=== PATIENT | female | born 1990 | race Two or more races ===

== ENCOUNTER → 2016-04-25 | Day surgery (SDC) | payer BC ==
[~2016-04-25] MED LIST: CEFAZOLIN 1 GM VIAL ONE; DEXAMETHASONE 4 MG/ML VIAL IV ONE; FENTANYL 100 MCG/2 ML VIAL IV ONE; FENTANYL 100 MCG/2 ML VIAL IV PRN; GLYCOPYRROLATE 1 MG VIAL IM ONE; HYDROmorphone 1 MG INJECTION IV PRN; LABETALOL 20 MG/4 ML SYRINGE IV PRN; LIDOCAINE 100 MG PFS IV ONE; MEPERIDINE 25 MG/ML TUBEX IV PRN; METHYLERGONOVINE 0.2 MG/ML AMPULE IM ONE; METHYLERGONOVINE 0.2 MG/ML AMPULE ONE; METOCLOPRAMIDE 10 MG/2 ML VIAL IV ONE; ONDANSETRON HCL 4 MG ODT TAB PO PRN; ONDANSETRON HCL 4 MG/2 ML VIAL IV ONE; ONDANSETRON HCL 4 MG/2 ML VIAL IV PRN; OXYCODONE HCL 5 MG TABLET ONE; OXYTOCIN 10 UNITS/ML VIAL IM ONE; PROPOFOL 200 MG/20 ML VIAL IV ONE; RHo(D) IMMUNE GLOBULIN (HUMAN) 300 MCG SYRINGE IM SCH; hydrALAZINE 20 MG/ML VIAL IV PRN
--- NOTE | 2016-04-25 11:21 | HIM.ANES ---
Anesthesia Evaluation & Plan Diagnoses: MISSED (04/25/16) 8 wk gestation Consented Procedure: Suction D and C Surgeon:: Mode Kenney - Focused Review of Systems Now: Yes (Missed AB) Cardiac History: No: Hx Hypertension, Hx Cardiac Disorders EKG Rhythm: Sinus Rhythm HEENT: No: Loose/Decaying Teeth, Other HEENT Problems Respiratory: No: Hx Asthma Gastrointestinal: No: Hx Liver disease, Hx Gastrointestinal Disorders Genitourinary: No: Hx Renal Disease Neurological/Musculoskeletal: No: Hx Neurological Disorders Psychological: Yes Hx Depression Blood/Autoimmune: No: Hx AIDS, Hx Hepatitis (type) Smoking Status: Never smoker Other Surgical History: 04/25/16 11:23 wisdom teeth - Focused Physical Exam NPO since: yesterday @ 1700 Mallampati: Class I Thyromental Distance: Greater than 3 Neck: Full Range of Motion Dental: Normal - no significant findings Cardiovascular/Chest: Normal Respiratory: Lungs clear Any problems with anesthesia, including nausea and vomiting?: No Any relatives with a history of Malignant Hyperthermia?: No Does patient have a history of Malignant Hyperthermia?: No Beta Jose given (if appropriate): N/A Does the patient have a history of Motion Sickness-: No Other: Allergies Allergy/AdvReac Type Severity Reaction Status Date / Time No Known Allergies Allergy Verified 04/25/16 11:01 Home Medications Medication Instructions Recorded Last Taken Type Vits W-Ca,Fe,FA(<1Mg) 1 each PO DAILY 04/25/16 04/23/16 21:00 History [] Height and Weight Patient's height 5 ft 5 in Patient's weight 65.771 kg Vital Signs Temperature 97.5 F 04/25/16 10:34 Pulse Rate 70 04/25/16 10:34 Respiratory Rate 16 04/25/16 10:34 Blood Pressure 122/71 04/25/16 10:34 Pulse Oxygen Saturation 100 04/25/16 10:34 METS - Level of Activity: Climbing stairs(1 flight),walking level ground, running short distance - Anesthetic Plan Anesthesia Type: General ASA Class: 1 -: I have examined this patient and reviewed the medical record. The patient has been assessed prior to anesthesia. Risks and benefits of anesthesia and anesthetic technique options have been discussed and all questions answered. The patient accepts the risk and desires me to proceed with the planned anesthetic.
--- NOTE | 2016-04-25 13:17 | HIMOPRPT ---
DATE OF PROCEDURE: 04/25/16 PREOPERATIVE DIAGNOSIS: Missed . POSTOPERATIVE DIAGNOSIS: Missed . PROCEDURE: Cervical dilation and uterine evacuation. SURGEON: Mode Kenney MD. ANESTHESIA: General endotracheal tube. COMPLICATIONS: None. ESTIMATED BLOOD LOSS: 100 mL.. FINDINGS: Uterus 8 weeks and anteverted on exam under anesthesia. PROCEDURE IN DETAIL: The patient was taken to the operating room and after successful induction of general endotracheal tube anesthesia, she was positioned in [facility]. The perineum and vagina were prepped and draped as a sterile field and the bladder was drained. A weighted speculum and anterior [place] were placed and the cervix was secured with a long Allis clamp. The cervix was dilated to a #19 Goodwin dilator. A #12 suction catheter was passed and the uterine cavity was evacuated. A medium-size curette was passed to be sure the cavity was clean. Methergine 0.25 mg IM was given to help with hemostasis. The patient was observed and once all instruments were removed, bleeding was noted to be minimal. She was taken down from [facility], awoken from general anesthesia, and brought to the recovery room in stable condition. All specimens were sent to pathology. Sponge and instrument counts were correct x3. D:
--- NOTE | 2016-04-25 13:18 | PCM.DCS92 ---
- Primary/Secondary Discharge Diagnoses (1) Missed with demise before 20 completed weeks of gestation Acute O02.1 - MISSED Present on Admission: Yes - HOSPITAL COURSE /Op Complications: None - DISCHARGE INSTRUCTIONS Discharge Disposition: Home Discharge Condition: Good Cognitive Discharge Status: Unimpaired Fuctional Discharge Status: Independent Patient Leaving with Prescriptions?: Yes Prescriptions: Hydrocodone Bit/Acetaminophen [Lortab 5/325] 1 - 2 tab PO Q4H PRN #30 tab PRN Reason: Pain Ibuprofen Tablet [Motrin] 800 mg PO Q6-8H PRN #30 tab PRN Reason: Pain Referrals: Mode Kenney MD [Staff Physician] - Listed Time - Diet Diet at Discharge: Regular - Activity Activity: Pelvic Rest, No Driving No Driving for: While using pain medications - Instructions Call Physician for: Severe Abdominal Cramps, Foul Smelling Discharge, Soaking Pad in 1 hr, Temperature Above 100.4 - Incision Incision, Lacerations, or Tears: No - DC Summary Notes Discharge Medications: *See "Discharge Medication List" for a complete list of Home Medications and Discharge Medications.*
[2016-04-25 16:03] VITALS: PULSE 76; TEMP 99
--- NOTE | 2016-04-27 01:17 | SC.ANESPOS ---
Post-Anesthesia Note LOC: Fully Awake Post-Anesthesia Assessment: Awake, Returned to Baseline, Hemodynamically Stable , Pain Control Adequate Phase I & II Recovery Complete: Yes Apparent Anesthesia Complication: No : N PACU Discharge Time: 14:13 - Vital Signs Blood Pressure: 104/66 Pulse: 76 Resp Rate: 18 O2 Sat: 100 Temp: 99.0 F - Comments Anesthesia Discharge Time Report Time 14:13
[2016-04-27 01:18] VITALS: BP 104/66
== END ==
LOC: SDC 09:33
PROVIDERS: ATTEND Obstetrics & Gynecology
PROC: 10D17ZZ Extraction of Products of Conception, Retained, Via Natural or Artificial Opening (ICD-10-PCS; principal; 2016-04-25 10:35)
DX: O02.1 Missed abortion (principal)
CPT/HCPCS: 59820; 86850; 86900; 86901; J0690; J1100; J2001; J2210; J2405; J2590; J2765; J3010; J3490